=== PATIENT | female | born 1980 | race Hispanic/Latino ===

== ENCOUNTER 2022-01-27 07:18 | Emergency (ER) | payer OTHER ==
[~2022-01-27] VITALS: Ht 157.5 cm; Wt 68.0 kg
[2022-01-27 07:50] LABS: BASOPHILS % (AUTO) 0.2 % (0.0-5.0); EOSINOPHILS % (AUTO) 1.2 % (0.0-8.0); HEMATOCRIT 36.7 % (36-48); LYMPHOCYTES % (AUTO) 5.6 % (21.0-51.0); MEAN CORPUSCULAR HEMOGLOBIN 24.5 pg (27.0-33.0); MEAN CORPUSCULAR HGB CONC 31.6 g/dL (32.0-36.0); MEAN CORPUSCULAR VOLUME 77.6 fL (79-99); MONOCYTES % (AUTO) 4.5 % (3.0-13.0); NEUTROPHILS % (AUTO) 87.7 % (40.0-77.0); PLATELET COUNT (AUTO) 554 K/uL (130-400); RED BLOOD CELL COUNT(AUTO) 4.73 MIL/uL (4.00-5.50); RED CELL DISTRIBUTION WIDTH 14.4 % (11.0-15.5); WHITE BLOOD COUNT (AUTO) 20.3 K/uL (4.8-10.8)
[2022-01-27] MEDS ORDERED: 0.9%NACL 1000ML 1,000 ML IV ONE (08:00)
[2022-01-27] MEDS ORDERED: FAMOTIDINE 20MG VIAL IV ONE (08:00)
[2022-01-27] MEDS ORDERED: ONDANSETRON 4MG INJ IVP ONE (08:00)
[2022-01-27 08:05] LABS: CREATININE 0.8 mg/dL (0.5-1.5); POTASSIUM 3.7 mmol/L (3.5-5.1)
[2022-01-27 08:10] LABS: TOTAL PROTEIN, SERUM 8.3 g/dL (6.0-8.3)
[2022-01-27 08:22] LABS: APPEARANCE,URINE SL CLOUDY (CLEAR); BILIRUBIN,URINE SMALL mg/dL (NEGATIVE); COLOR,URINE YELLOW (YELLOW); GLUCOSE, URINE (UA) NEGATIVE (NEGATIVE); KETONES,URINE 15 mg/dL (NEGATIVE); LEUKOCYTE ESTERASE ,URINE NEGATIVE Leu/uL (NEGATIVE); NITRATE,URINE NEGATIVE (NEGATIVE); OCCULT BLOOD,URINE SMALL (NEGATIVE); PROTEIN,URINE 30 mg/dL (NEGATIVE); UROBILINOGEN,URINE 0.2 mg/dL (0.2-1.0)
[2022-01-27] MEDS ORDERED: HYOSCYAMINE SULFATE 0.125 MG TAB.SUBL SL SCH (08:30)
[2022-01-27] MEDS ORDERED: MORPHINE 4 MG SYG IVP ONE (08:30)
[2022-01-27 09:20] LABS: BACTERIA,URINE Rare /HPF (None Seen); RBC,URINE None Seen /HPF (0-1); SQUAMOUS EPITHELIAL CELL,UR 0-2 /HPF (0-2); WBC,URINE None Seen /HPF (0-1)
[2022-01-27] MEDS ORDERED: PROMETHAZINE HCL 25 MG/ML 1ML AMPULE IVPB STA (09:54)
[2022-01-27 11:00] VITALS: BP 123/77
[2022-01-27] MEDS ORDERED: 0.9%NACL 1000ML 1,000 ML IV STA (11:34)
[2022-01-27] MEDS ORDERED: ONDA4TAB10 PO (12:35)
== END 2022-01-27 13:24 | disposition home or self-care (01) ==
LOC: EDH 07:18
DX: A05.9 Bacterial foodborne intoxication, unspecified (principal); E86.0 Dehydration; R11.2 Nausea with vomiting, unspecified; R19.7 Diarrhea, unspecified; Z90.49 Acquired absence of other specified parts of digestive tract
CPT/HCPCS: 99284; 96365; 96361; 96375; 80053; 83690; 85025; 81001; 81025; 36415; J3490; J7030 ×2; J2550; J2405; J2270